=== PATIENT | female | born 1965 | race Caucasian/White ===

== ENCOUNTER → 2017-11-30 11:24 | Outpatient (CLI) | payer OTHER, SELFPAY ==
--- NOTE | 2017-11-30 | DI.MG.S_ITS ---
BILATERAL DIGITAL SCREENING MAMMOGRAM 3D/2D WITH CAD: 11/30/2017 CLINICAL: Routine screening. Family history of breast cancer. Comparison is made to exams dated: 08/15/2016 mammogram, 08/10/2015 mammogram, and 06/01/2014 mammogram - [facility]. There are scattered fibroglandular elements in both breasts. Current study was also evaluated with a Computer Aided Detection (CAD) system. There is a mass in the left breast central to the nipple in the retroareolar region. There is architectural distortion associated with the mass. No other significant masses, calcifications, or other findings are seen in either breast. IMPRESSION: INCOMPLETE: NEEDS ADDITIONAL IMAGING EVALUATION The mass in the left breast is indeterminate. Additional views with possible ultrasound are recommended. This exam was interpreted at Station ID: [id number]. NOTE: For mammograms, a report in lay terms will be sent to the patient. Approximately 15% of breast malignancies will not be visualized mammographically. In the management of a palpable breast mass, a negative mammogram must not discourage biopsy of a clinically suspicious lesion. Electronically Signed By: Otilia johnson/honey:11/30/2017 12:23:06 letter sent: Additional Imaging Needed ACR BI-RADS Category 0: Incomplete [id number]
== END ==
DX: Z12.31 Encounter for screening mammogram for malignant neoplasm of breast (principal); Z80.3 Family history of malignant neoplasm of breast
CPT/HCPCS: 77063; 77067

== ENCOUNTER → 2017-12-24 09:23 | Outpatient (CLI) | payer OTHER, SELFPAY ==
--- NOTE | 2017-12-24 | DI.MG.S_ITS ---
UNILATERAL LEFT DIGITAL DIAGNOSTIC MAMMOGRAM 3D/2D WITH ADDITIONAL VIEWS: 12/24/2017 CLINICAL: Additional evaluation requested from prior study. Comparison is made to exams dated: 11/30/2017 mammogram - [facility], 08/15/2016 mammogram, and 08/10/2015 mammogram - [facility] [place]. There are scattered fibroglandular elements in left breast. Previously noted mass in the left breast central to the nipple in the retroareolar region with possible architectural distortion on comparison screening mammogram persists with additional views and appears to be part of a serpiginous structure posterior and superior to the left nipple. This may represent a prominent retroareolar duct. No other significant masses, calcifications, or other findings are seen in the breast. IMPRESSION: INCOMPLETE: NEEDS ADDITIONAL IMAGING EVALUATION Previously noted mass in the left breast central to the nipple in the retroareolar region with possible architectural distortion on comparison screening mammogram persists with additional views and appears to be part of a serpiginous structure posterior and superior to the left nipple. This may represent a prominent retroareolar duct. A targeted ultrasound is recommended and will be performed immediately following this exam. This exam was interpreted at Station ID: [id number]. NOTE: For mammograms, a report in lay terms will be sent to the patient. Approximately 15% of breast malignancies will not be visualized mammographically. In the management of a palpable breast mass, a negative mammogram must not discourage biopsy of a clinically suspicious lesion. Electronically Signed By: Miller Kyle M.D. ecl/:12/24/2017 21:09:55 letter sent: Additional Imaging Needed ACR BI-RADS Category 0: Incomplete 3340F
--- NOTE | 2017-12-24 | DI.US.S_ITS ---
LIMITED ULTRASOUND OF LEFT BREAST: 12/24/2017 CLINICAL: Patient returns today to evaluate a possible retroareolar mass or ectatic duct in the left breast, retroareolar. Comparison is made to exams dated: 12/24/2017 mammogram, 11/30/2017 mammogram - [facility], 08/15/2016 mammogram, 08/10/2015 mammogram, and 06/01/2014 mammogram - [facility]. Real-time and Doppler ultrasound of the left breast retroareolar were performed. Manuel scale images of the real-time examination were reviewed. Targeted ultrasound of the left nipple and retroareolar region demonstrates no abnormality or mass. There is no focal duct dilitation. IMPRESSION: NEGATIVE 1) No sonographic abnormality of the left nipple/retroareolar region to correlate with the possible retroareolar mass seen on mammography. This may have represented a confluence of superimposed benign tissues or a breast duct imaged obliquely. Recommend clinical follow-up with the patient's referring provider for further evaluation and management. A breast MRI can be considered if there is continued clinical concern. 2) No sonographic evidence of malignancy in the imaged retroareolar left breast. Return to annual screening mammography recommended, next due in December 2018. The patient is advised to monitor her breasts and to return sooner for re-evaluation should anything grow or change. This exam was interpreted at Station ID: [id number]. Electronically Signed By: Miller Kyle M.D. ecl/:12/24/2017 21:24:42 letter sent: Clinical Evaluation Ultrasound BI-RADS: 1 Negative
== END ==
DX: R92.8 Other abnormal and inconclusive findings on diagnostic imaging of breast (principal)
CPT/HCPCS: 76642; 77065; G0279

== ENCOUNTER 2018-10-24 13:16 | Day surgery (SDC) | payer OTHER, SELFPAY ==
--- NOTE | 2018-10-24 | PATH_ITS ---
[facility] Accession Number: [id number] . 01 Material submitted: . colon - POLYP AT 10 CM . 02 Diagnosis: Colon, Polyp at 10 cm, Biopsy: Hyperplastic polyp. [facility]/10/25/2018 . 02 Electronically signed: . Danay Soto MD, Pathologist NPI- [id number] . 01 Gross description: . POLYP AT 10 CM: Received in formalin is 1 fragment(s) of deutsch, soft tissue measuring 0.2 x 0.1 x 0.1 cm which is entirely submitted and submitted entirely in 1 cassette(s) /DMC /DMC . 02 Pathologist provided ICD-10: K63.5 . 02 CPT . 549753 Performed at: 01 [facility] [address] [id number] MD Yonas Dyson MD Phone: [phone] Performed at: 02 [facility] [place] [address] [place], [place] [id number] MD Danay Soto MD Phone: [phone]
[2018-10-24 13:33] VITALS: BP 134/89; PULSE 86; RESP 15; TEMP 36.2; O2SAT 100
[2018-10-24] MEDS: SODIUM CHLORIDE 0.9% 1,000 ML 200 ML IV (13:44)
--- NOTE | 2018-10-24 13:51 | PM.HP.1 ---
History of Present Illness Date Patient Seen: 10/24/18 Time Patient Seen: 13:52 Chief complaint: 01999 SCREENING COLONOSCOPY Narrative: Patient presents for colorectal screening. They had a previous examination 10 years ago which was normal. They tested positive with a cologaurd test which promted this screening. On further history denies any recent gastrointestinal symptoms. No nausea, vomiting, abdominal pain, loss of appetite, unexplained weight loss, change in bowel habits, diarrhea, constipation, melena, hematochezia, or bright red blood per rectum. Patient History Medical History IBS (irritable bowel syndrome) (Acute) Surgical History deliv NOS-unsp (Acute) Meds Home Medications Medication Instructions Recorded Confirmed Type [ Nettle tea] #0 12/31/15 History [ Control] PO DAILY #0 12/31/15 History Allergies Allergy/AdvReac Type Severity Reaction Status Date / Time No Known Drug Allergies Allergy Verified 10/24/18 13:31 Review of Systems Review of Systems All systems reviewed & are unremarkable except as noted in HPI and below Exam Vital Signs (past 8 hours): - 10/24/18 13:33 Temperature 97.2 F L Pulse Rate 86 Respiratory Rate 15 Blood Pressure 134/89 Pulse Oximetry 100 Oxygen Delivery Method Room Air Narrative Exam Narrative: General-adult female no acute distress, well nourished HEENT-moist mucous membranes, no scleral icterus Neck-supple with full range of motion, no lymphadenopathy Chest- no labored respirations, clear to auscultation bilaterally Cardiac-regular rate and rhythm Abdomen-soft, nontender, non distended Extremities-no edema, warm well perfused Neurological-alert and oriented x 3. No focal deficits Skin-normal temperature and turgor, no rashes or ulcers Assessment & Plan Assessment & Plan narrative: Patient is requiring colorectal screening. Colonoscopy is recommended. Technical details were discussed. Risks, benefits, alternatives explained. Risks including but not limited to sedation, aspiration, bleeding, pain, missed lesion, incomplete examination, need for further radiographic studies, colonic perforation, need for major abdominal surgery, and all attendant risks major surgery were discussed at length. All questions were answered to their satisfaction, and they voiced understanding.
--- NOTE | 2018-10-24 13:57 | PM.PREOP ---
Pre-operative Note Interval Note History & Physical reviewed/Exam performed by Physician: Yes Changes to H&P: No ASA Class (for procedural sedation): II
--- NOTE | 2018-10-24 13:57 | PM.OP.ENDO ---
Operative Date/Time/Diagnoses Date of procedure: 10/24/18 Time of procedure: 13:58 Pre-op diagnosis: Screening colonoscopy Post-op diagnosis: same Procedure & Clinicians Study performed: colonoscopy with biopsy Same procedure as scheduled: Yes Indications: Positive cologaurd test Procedure Notes SCOAP/Timeout: performed Procedure in detail: Patient was placed in the left lateral decubitus position. A digital rectal exam was performed which was normal. The scope was gently inserted into the anus advanced through the rectum sigmoid descending colon transverse and cecum. The ileocecal valve was identified. The scope was carefully withdrawn. The quality of the prep was excellent. A less than 1 cm benign appearing polyp was identified at 10 cm which was biopsied. The site was hemostatic. The scope was withdrawn. Scope withdrawal time: 10 Sedation minutes: 34 Findings: polyp Specimen(s): other (polyp @ 10 cm) Complications: other Impression: normal colonoscopy Recommendations: Colonscopy in 10 years Disposition: same day surgery
[2018-10-24 14:45] VITALS: BP 118/84; PULSE 82; RESP 17; O2SAT 96
[2018-10-24 14:50] VITALS: BP 116/84; PULSE 89; RESP 20; TEMP 36.3; O2SAT 96
[2018-10-24 14:55] VITALS: BP 118/79; PULSE 83; RESP 16; O2SAT 95
[2018-10-24 15:05] VITALS: BP 121/83; PULSE 83; RESP 20; TEMP 36.3; O2SAT 96
[2018-10-24 15:20] VITALS: BP 115/85; PULSE 82; RESP 16; TEMP 36.3
[2018-10-24] MEDS: MIDAZOLAM 5 MG/5 ML VIAL IV (17:18)
[2018-10-24] MEDS: fentaNYL 250 MCG/5 ML INJ IV (17:19)
== END 2018-10-24 15:30 | disposition home or self-care (01) ==
PROVIDERS: PCP Family Medicine; Visit Provider Surgery
PROC: 0DJD8ZZ Inspection of Lower Intestinal Tract, Via Natural or Artificial Opening Endoscopic (ICD-10-PCS; CPT 45378; principal; 2018-10-24 14:30)
DX: Z12.11 Encounter for screening for malignant neoplasm of colon (principal); K63.5 Polyp of colon
CPT/HCPCS: 45380; 88305; 99152; 99153; J2250; J3010

== ENCOUNTER → 2020-05-12 11:49 | Outpatient (CLI) | payer OTHER, SELFPAY ==
--- NOTE | 2020-05-12 11:51 | DI.MG.S_ITS ---
BILATERAL DIGITAL SCREENING MAMMOGRAM 3D/2D WITH CAD: 05/12/2020 CLINICAL: Routine screening. Family history of breast cancer. Comparison is made to exams dated: 12/24/2017 mammogram, 11/30/2017 mammogram - [facility], and 08/15/2016 mammogram - [facility]. There are scattered fibroglandular elements in both breasts. Current study was also evaluated with a Computer Aided Detection (CAD) system. No significant masses, calcifications, or other findings are seen in either breast. There has been no significant interval change. IMPRESSION: NEGATIVE There is no mammographic evidence of malignancy. A 1 year screening mammogram is recommended. This exam was interpreted at Station ID: [id number]. NOTE: For mammograms, a report in lay terms will be sent to the patient. Approximately 15% of breast malignancies will not be visualized mammographically. In the management of a palpable breast mass, a negative mammogram must not discourage biopsy of a clinically suspicious lesion. Electronically Signed By: Denice patton/honey:05/12/2020 13:27:30 letter sent: Normal Exam ACR BI-RADS Category 1: Negative [id number]
== END ==
PROVIDERS: PCP Family Medicine; Referring Provider Family Medicine; Visit Provider Family Medicine
DX: Z12.31 Encounter for screening mammogram for malignant neoplasm of breast (principal); Z80.3 Family history of malignant neoplasm of breast
CPT/HCPCS: 77063; 77067

== ENCOUNTER 2023-06-06 09:27 | Day surgery (SDC) | payer OTHER, SELFPAY ==
[2023-06-06 09:56] VITALS: BP 137/96; PULSE 79; RESP 18; TEMP 36.9; O2SAT 100
[2023-06-06] MEDS: LACTATED RINGERS 1,000 ML 42 ML IV (10:00)
--- NOTE | 2023-06-06 10:20 | PM.HP.1 ---
History of Present Illness History of Present Illness Date Patient Seen: 06/06/23 Chief complaint: EGD w/poss bx Narrative: Cough PFSH Medical History IBS (irritable bowel syndrome) Surgical History deliv NOS-unsp Social History Smoking Status: Never smoker alcohol intake: current Meds Home Medications and Allergies Home Medications Medication Instructions Recorded Confirmed Type [ Nettle tea] ##0 12/31/15 History phentermine 37.5 mg capsule 37.5 mg PO DAILY 06/06/23 06/06/23 History progesterone micronized 100 mg 100 mg PO ONCE PM 06/06/23 06/06/23 History capsule thyroid (pork) 60 mg tablet 60 mg PO DAILY 06/06/23 06/06/23 History ([place] Thyroid) Allergies Allergy/AdvReac Type Severity Reaction Status Date / Time No Known Drug Allergies Allergy Verified 06/06/23 09:48 Exam Vital Signs (past 8 hours): - 06/06/23 09:56 Temperature 98.4 F Pulse Rate 79 Respiratory Rate 18 Blood Pressure 137/96 H Pulse Oximetry 100 Oxygen Delivery Method Room Air Oxygen Delivery Method Room Air Narrative Exam Narrative: Oropharynx free of lesions Chest clear to auscultation percussion with the exception knee anterior right lung field with a musical wheeze which cleared with coughing Cardiac exam reveals no S3 or murmur Assessment & Plan Assessment & Plan narrative: Cough rule out GERD. Risks, benefits, alternatives have been explained. I also discussed with her that if this is negative she should probably be referred to see Pulmonary.
--- NOTE | 2023-06-06 10:27 | PM.OP.EGD ---
Operative Date/Time/Diagnoses Date of procedure: 06/06/23 Pre-op diagnosis: See indication and findings Procedure & Clinicians Study performed: EGD Indications: Cough Surgeon: Arden Suh Procedure Notes Procedure in detail: After informed consent was obtained the patient was placed in left lateral decubitus position. The video upper scope was placed in the oropharynx and with the patient's help swallowed into the esophagus. The esophagus stomach and duodenum were carefully examined. On withdrawal, retroflexed view the GE junction was performed. The scope was removed. The patient tolerated the procedure well. Blood loss none Complications none Sedation mac Findings 1. LA classification B esophagitis with 2 linear ulcerations 2. Wide open GE junction 3. Normal duodenal bulb and sweep 4. Normal stomach Cindy Natalie is 1 of the few that has findings in her esophagus with isolated cough. To this end I would suggest her going on Protonix 40 mg b.i.d. for the next 2-3 months and see how she does. I would hope that she has some resolution.
[2023-06-06 10:46] VITALS: BP 129/91; PULSE 99; RESP 20; TEMP 36.3; O2SAT 96
[2023-06-06 10:51] VITALS: BP 124/82; PULSE 99; RESP 19; TEMP 36.3; O2SAT 95
[2023-06-06 10:56] VITALS: BP 124/81; PULSE 98; RESP 19; TEMP 36.3; O2SAT 98
== END 2023-06-06 11:11 | disposition home or self-care (01) ==
PROVIDERS: PCP Family Medicine; Referring Provider Internal Medicine Gastroenterology; Visit Provider Internal Medicine Gastroenterology
PROC: 0DJ08ZZ Inspection of Upper Intestinal Tract, Via Natural or Artificial Opening Endoscopic (ICD-10-PCS; CPT 43235; principal; 2023-06-06 10:30)
DX: K20.90 Esophagitis, unspecified without bleeding (principal); R05.9 Cough, unspecified
CPT/HCPCS: 43235; J2704